=== PATIENT | female | born 1985 | race Caucasian/White ===

== ENCOUNTER 2017-02-03 21:46 | Emergency (ER) | payer SELFPAY ==
[2017-02-03 22:00] VITALS: BP 112/57; PULSE 74; TEMP 98.6; BMI 24.7
== END 2017-02-04 00:52 | disposition left against medical advice (07) ==
LOC: JER 21:46
DX: Z53.21 Procedure and treatment not carried out due to patient leaving prior to being seen by health care provider (principal)
CPT/HCPCS: 99281-25

== ENCOUNTER 2017-02-08 22:47 | Emergency (ER) | payer SELFPAY ==
--- NOTE | 2017-02-08 22:50 | PDOC ---
History of Present Illness - General Chief Complaint: Nausea/Vomiting Stated Complaint: DIZZINESS/NAUSEA/VOMITING Time Seen by Provider: 02/08/17 22:49 History Source: Patient Exam Limitations: No Limitations - History of Present Illness Initial Comments: 02/08/17 23:12 This is a 31-year-old female comes in complaining of nausea vomiting and dizziness. Patient said she has been unable to tolerate any solids or liquids 1 week. Patient said that whenever she eats or drinks something that it is vomited back up. Patient is complaining of some mild lower abdominal pain otherwise denies any chest pain, fevers, chills back pain or diarrhea. PAST MEDICAL HISTORY: no significant history PAST SURGICAL HISTORY: no significant history FAMILY HISTORY: no pertinant history SOCIAL HISTORY: Pt lives with family and is employed. MEDICATIONS: reviewed ALLERGIES: As per nursing notes Review of Systems General: No fevers or chills, no weakness, no weight loss HEENT: No change in vision. No sore throat,. No ear pain CardioVascular: No chest pain or shortness of breath Respiratory:No cough, or wheezing. Gastrointestinal: Positive nausea, positive vomitting, no diarrhea or constipation, No rectal bleeding Genitourinary: No dysuria, hematuria, or frequency Musculoskeletal: No joint or muscle pain or swelling Neurologic: No headache, vertigo, dizziness or loss of consciousness Psychiatric: nor depression Skin: No rashes or easy bruising Endocrine: no increased thirst or abnormal weight change Allergic: no skin or latex allergy All other systems reviewed and normal Exam: General: Well-nourished well-developed individual, no acute distress HEENT: Throat: Normal, tonsils normal, no erythema or exudate, mucous membranes are moist and there is no evidence clinically of dehydration Neck: Supple, no meningeal signs, no lymphadenopathy Eyes::Pupils equal reactive and round, extraocular motion intact Chest: Nontender to palpation Cardiac: S1-S2 normal, regular rate and rhythm, no murmurs rubs or gallops Respiratory: Lungs clear to auscultation bilateral Abdomen: Soft, nondistended, normal bowel sounds, nontender to palpation diffusely Extremities: Warm, dry, no cyanosis, clubbing, or edema Skin: No rashes Neuro: Alert and oriented x3, nonfocal exam, grossly intact, normal gait Psych: Normal mood and affect 02/09/17 00:46 Referring Physician: China Cruz Patient Name: Gerri Rod This is a preliminary report by imaging manager international Exam: Noncontrast CT abdomen and pelvis Images: [id number] Clinical indication: Left flank pain. Rule out stone. Findings: The lung bases are clear. The upper abdominal viscera have a normal unenhanced appearance. A Millie's lobe of liver is noted. The adrenal glands are unremarkable. A left renal cyst is noted. The kidneys are otherwise normal unenhanced appearance. No calculi are seen. There is no hydronephrosis or hydroureter. The gastrointestinal tract does not appear obstructed. No thickened or dilated bowel is seen. The appendix has a normal appearance. There is no mesenteric infiltration. There is no free fluid. The uterus is retroverted. No adnexal masses are seen. The urinary bladder is unremarkable. No abdominal or pelvic adenopathy is seen. No lytic or blastic destructive osseous lesions are seen. Impression: No inflammatory process identified in the abdomen or pelvis. No abdominal mass, adenopathy or collection seen. No urinary tract calculi or evidence of urinary tract instructions seen. Left renal cyst noted. THIS DOCUMENT HAS BEEN ELECTRONICALLY SIGNED Jcarlos Simons M.D. 02/09/2017 00:42 NGOZI Alvarado Please call Imaging Wheel [facility] Axle Inspector [phone] ([phone]) with questions. End of Report Content Assessment and plan: This is a 31-year-old female comes in complaining of nausea and vomiting times one week patient said that she is unable to keep anything in. However patient did not appear dehydrated or does not show any dehydration and her blood work is all normal. Patient did have a small amount of blood in her urine is a CAT scan was done to rule out renal stones and CAT scan was negative for any acute intra-abdominal pathology. Patient was able to tolerate by mouth's in the emergency room patient was comfortable text on her phone and chatting with her friends. Patient discharged home will follow-up with her primary care doctor. Past History - Past Medical History Allergies/Adverse Reactions: Allergies Allergy/AdvReac Type Severity Reaction Status Date / Time No Known Drug Allergies Allergy Verified 02/03/17 21:58 Home Medications: Ambulatory Orders Ondansetron [Zofran *Odt*] 8 mg SL TID PRN #10 od.tablet 02/08/17 Asthma: Yes - Surgical History Abdominal Surgery: Yes - Psycho/Social/Smoking Cessation Hx Anxiety: No Suicidal Ideation: No Smoking Status: No Smoking History: Never smoked Have you smoked in the past 12 months: No Number of Cigarettes Smoked Daily: 0 Hx Alcohol Use: Yes (SOCIAL) Drug/Substance Use Hx: No Substance Use Type: Alcohol ED Treatment Course - LABORATORY CBC & Chemistry Diagram: 02/08/17 23:00 02/08/17 23:00 *DC/Admit/Observation/Transfer Diagnosis at time of Disposition: Nausea & vomiting Qualifiers: Vomiting type: unspecified Vomiting Intractability: non-intractable Qualified Code(s): R11.2 - Nausea with vomiting, unspecified - Discharge Dispostion Disposition: HOME Condition at time of disposition: Stable Admit: No - Prescriptions Prescriptions: Ondansetron [Zofran *Odt*] 8 mg SL TID PRN #10 od.tablet PRN Reason: Nausea - Patient Instructions Printed Discharge Instructions: DI for Nausea -- Adult Additional Instructions: For the nausea take Zofran 1 tablet as often as every 6-8 hours. Return to the emergency department immediately with ANY new, persistent or worsening symptoms. Continue any medications as previously prescribed by your physician. You should follow up with your primary doctor as soon as possible regarding today's emergency department visit. . Please make sure your doctor reviews the results of your emergency evaluation. Thank you for coming to the Emergency Department today for your care. It was a pleasure to see you today. Please note that your evaluation is INCOMPLETE until you follow-up with your doctor.
[2017-02-08 22:51] VITALS: BP 106/76; PULSE 77; TEMP 98; BMI 25.2
[2017-02-08] MEDS ORDERED: ONDANSETRON 4 MG/2 ML VIAL IVPB ONE (22:57)
[2017-02-08] MEDS ORDERED: ONDANSETRON 4 MG/2 ML VIAL ONE (23:03)
[2017-02-08] MEDS ORDERED: SODIUM CHLORIDE 1,000 ML IV ONE (23:05)
[2017-02-08 23:17] LABS: PH,URINE 5.5 (4.5-8); URINE APPEARANCE Clear; URINE BILIRUBIN 1+ (NEGATIVE); URINE GLUCOSE (UA) Negative (NEGATIVE); URINE KETONE 2+ (NEGATIVE); URINE LEUK ESTERASE Trace (NEGATIVE); URINE NITRITE Negative (NEGATIVE); URINE UROBILINOGEN 1.0 E.U/dl (0.2-1.0)
[2017-02-08 23:18] LABS: BASOPHIL 0.6 % (0-2.0); EOSINOPHIL 0.7 % (0-4.5); MCH 27.7 pg (25.7-33.7); MCHC 33.7 g/dl (32.0-36.0); MEAN CELL VOLUME 82.2 fl (80-96); MEAN PLT VOLUME 9.6 fl (7.5-11.1); NEUTROPHILS 72.5 % (42.8-82.8); PLATELET COUNT 303 K/MM3 (134-434); RDW 11.9 % (11.6-15.6); URINE BLOOD 2+ (NEGATIVE); URINE COLOR YELLOW; URINE PROTEIN 1+ (NEGATIVE)
[2017-02-08 23:39] LABS: ALBUMIN 4.5 g/dl (3.5-5.0); ALK PHOS 48 U/L (32-92); ANION GAP 10 (8-16); BILIRUBIN,TOTAL 0.5 mg/dl (0.2-1.0); CALCIUM 9.5 mg/dl (8.4-10.2); CO2 26 mmol/L (22-28); COCKROFT - GAULT 116.1185; CREATININE 0.7 mg/dl (0.6-1.3); GLUCOSE,RANDOM 98 mg/dl (74-106); SGOT/AST 14 U/L (10-42); SGPT/ALT 10 U/L (10-40); TOT PROT 7.4 g/dl (6.4-8.3)
[2017-02-08 23:42] LABS: URINE MUCUS 2+
== END 2017-02-09 00:49 | disposition home or self-care (01) ==
LOC: FER 22:47
PROC: 3E033GC Introduction of Other Therapeutic Substance into Peripheral Vein, Percutaneous Approach (ICD-10-PCS; principal; 2017-02-08)
PROC: 3E0337Z Introduction of Electrolytic and Water Balance Substance into Peripheral Vein, Percutaneous Approach (ICD-10-PCS; 2017-02-08)
DX: R11.2 Nausea with vomiting, unspecified (principal)
CPT/HCPCS: 36415; 74176-TC; 80053; 81003; 81015; 83690; 84703; 85025; 99282-25

== ENCOUNTER 2017-04-22 11:35 | Emergency (ER) | payer OTHER ==
--- NOTE | 2017-04-22 11:39 | PDOC ---
History of Present Illness - General Chief Complaint: Headache Stated Complaint: HEADACHE Time Seen by Provider: 04/22/17 11:39 History Source: Patient Exam Limitations: No Limitations - History of Present Illness Initial Comments: 04/22/17 11:49 31y F hx of athma, migraine headaches presents with headache. Pt states he has been having a headache for the past 2 weeks, headache started off as mild and intermittent, improved with sleep and excedrin and motrin, however hte past 2-3 days headache has become much more severe and is stabbing in nature, on the left side of frontal aspect and behind L eye. Pt endorses some blurry vision when stabbing comes and endroses photophobia and phonophobia. Pt endorses nausea and vomiting with headache as well. pt denes any fever/chills, recent head injury, numbness/tingling/weakness, neck pain, back pain, cp, sob, abd pain. LMP 2-3 weeks ago pt notes she has headaches fairly commonly, but typically resolves with motrin. the headache is similar to the past in nature, but is more severe and persistent relative to previous headaches. [facility] pt endorses sleeping much less the past 2-3 days due to the headache Past History - Past Medical History Allergies/Adverse Reactions: Allergies Allergy/AdvReac Type Severity Reaction Status Date / Time No Known Drug Allergies Allergy Verified 04/22/17 11:38 Home Medications: Ambulatory Orders Aspirin/Acetaminophen/Caffeine [Excedrin Migraine Caplet] 1 each PO ASDIR Asthma: Yes - Surgical History Abdominal Surgery: Yes - Psycho/Social/Smoking Cessation Hx Anxiety: No Suicidal Ideation: No Smoking Status: No Smoking History: Never smoked Have you smoked in the past 12 months: No Number of Cigarettes Smoked Daily: 0 Hx Alcohol Use: Yes (SOCIAL) Drug/Substance Use Hx: No Substance Use Type: Alcohol Review of Systems - Review of Systems Able to Perform ROS?: Yes Comments:: 04/22/17 11:52 Constitutional - no reported Fever, Chills, HEENT: no reported vision changes, sore throat Respiratory: no reported cough, sob, hemoptysis Cardiac: no reported chest pain, palpitations, light headedness, leg swelling Abd/GI: no reported abd pain, nausea, vomiting, blood per rectum, melena, diarrhea : no reported dysuria, frequency, discharge Musculskelatal - no reported back pain, joint swelling skin - no reported bruising, erythema, rash neurological: +headache, photophobia, phonophobia, intermittent blurry vision no reported numbness, focal weakness, tingling, ataxia, hematologic: no reported anemia, easy bruising, easy bleeding *Physical Exam - Physical Exam Comments: 04/22/17 11:54 GENERAL: The patient is awake, alert, and fully oriented, Nontoxic - in no acute distress. HEAD: Normocephalic, atraumatic. EYES: extraocular movements intact, sclera anicteric, conjunctiva clear, visual nolasco intact by confrontation, pupils 4mm and reactive symemtrically ENT: Normal voice, Moist mucous membranes. NECK: Normal range of motion, supple LUNGS: Breath sounds equal, clear to auscultation bilaterally. No wheezes, no rhonchi, no rales. HEART: Regular rate and rhythm, normal S1 and S2 without murmur, rub or gallop. ABDOMEN: Soft, nontender, normoactive bowel sounds. No guarding, no rebound. No CVA tenderness EXTREMITIES: Normal range of motion, no edema. No clubbing or cyanosis. No cords, erythema, or tenderness. NEUROLOGICAL: No facial assymetry, Normal speech, normal finger to nose, strength intact and symmetrically grossly and sensation intact grossly PSYCH: Normal mood, normal affect. SKIN: Warm, Dry, normal turgor, ED Treatment Course - LABORATORY CBC & Chemistry Diagram: 04/22/17 12:00 04/22/17 12:00 Medical Decision Making - Medical Decision Making 04/22/17 11:52 31y F h xof migraine headaches presenting with stabbing/pounding headache to the left frontal scalp behind L eye associated with n/v, photophobia, phonophobia. pts exam noted as documented abov e. vitals normal. vision exam normal suspect migraine headache based on spmtoms will give reglan/fluids/magnesium suspect lack of sleep recently has worsened her headache will reasssess 04/22/17 13:37 pt feeing significantly improved with resolution of her sypmtoms will dc the pt with instructions for rest at home if pt continues to have frequent headaches myrna have pt fu with neurologist for further evaluation I discussed the physical exam findings, ancillary test results and final diagnoses with the patient. I answered all of the patient's questions. The patient was satisfied with the care received and felt comfortable with the discharge plan and treatment plan. The patient will call their primary care physician within 24 hours to arrange follow-up and will return to the Emergency Department with any new, persistent or worsening symptoms. *DC/Admit/Observation/Transfer Diagnosis at time of Disposition: Migraine with aura Qualifiers: Status migrainosus presence: without status migrainosus Intractability: not intractable Qualified Code(s): G43.109 - Migraine with aura, not intractable, without status migrainosus - Discharge Dispostion Disposition: HOME Condition at time of disposition: Improved Admit: No - Referrals Referrals: Tonja Reeves MD [Staff Physician] - Jcarlos Rodriguez MD [Staff Physician] - - Patient Instructions Printed Discharge Instructions: DI for Migraine, Migraine -- Adult Additional Instructions: Return to the emergency department immediately with ANY new, persistent or worsening symptoms including worsening headache, vision changes, numbness/ tingling/weakness, persistent nausea and vomiting or any other concerns. Make sure you are getting adaqute sleep and hydration. Avoid caffeine You MUST call and follow up with your doctor in 2-3 days for further evaluation of your symptoms. Follow up with a neurolgist for evaluation of your frequent headaches. Your emergency department visit is not complete without a followup with your doctor for reevaluation. Results were discussed with you. Please make sure your doctor reviews the results of your emergency evaluation. Print Language: MARTINIQUAIS
[2017-04-22 11:44] VITALS: BP 108/66; PULSE 77; TEMP 99.1; BMI 23.2
[2017-04-22] MEDS ORDERED: SODIUM CHLORIDE 1,000 ML IV ONE (11:48)
[2017-04-22] MEDS ORDERED: MAGNESIUM SULF 50% (8.12 MEQ/2 ML-1 GM VIAL) IVPB ONE (11:48)
[2017-04-22] MEDS ORDERED: METOCLOPRAMIDE HCL INJECTION 10 MG/2 ML VIAL IVPUSH ONE (11:48)
[2017-04-22 12:06] LABS: BASOPHIL 1.4 % (0-2.0); EOSINOPHIL 1.2 % (0-4.5); MCHC 33.5 g/dl (32.0-36.0); MEAN CELL VOLUME 83.5 fl (80-96); MEAN PLT VOLUME 9.2 fl (7.5-11.1); NEUTROPHILS 70.8 % (42.8-82.8); PLATELET COUNT 257 K/MM3 (134-434); WHITE BLOOD COUNT 6.4 K/mm3 (4.0-10.8)
[2017-04-22 12:25] LABS: ALBUMIN 4.6 g/dl (3.5-5.0); ALK PHOS 45 U/L (32-92); ANION GAP 6 (8-16); BILIRUBIN,TOTAL 1.2 mg/dl (0.2-1.0); CALCIUM 9.4 mg/dl (8.4-10.2); CO2 26 mmol/L (22-28); CREATININE 0.6 mg/dl (0.6-1.3); GLUCOSE,RANDOM 106 mg/dl (74-106); SGOT/AST 14 U/L (10-42); SGPT/ALT 14 U/L (10-40); TOT PROT 6.8 g/dl (6.4-8.3)
[2017-04-22] MEDS ORDERED: KETOROLAC TROMETHAMINE 30 MG/1 ML VIAL IVPUSH ONE (12:55)
[2017-04-22] MEDS ORDERED: KETOROLAC TROMETHAMINE 30 MG/1 ML VIAL ONE (13:04)
== END 2017-04-22 14:10 | disposition home or self-care (01) ==
LOC: FER 11:35
PROC: 3E0333Z Introduction of Anti-inflammatory into Peripheral Vein, Percutaneous Approach (ICD-10-PCS; principal; 2017-04-22)
PROC: 3E033GC Introduction of Other Therapeutic Substance into Peripheral Vein, Percutaneous Approach (ICD-10-PCS; 2017-04-22)
PROC: 3E0337Z Introduction of Electrolytic and Water Balance Substance into Peripheral Vein, Percutaneous Approach (ICD-10-PCS; 2017-04-22)
DX: G43.109 Migraine with aura, not intractable, without status migrainosus (principal); J45.909 Unspecified asthma, uncomplicated
CPT/HCPCS: 36415; 80053; 84703; 85025; 96361; 96374; 96375; 99284-25

== ENCOUNTER 2017-06-14 16:09 | Emergency (ER) | payer OTHER ==
[2017-06-14 16:30] VITALS: BMI 22.3
[2017-06-14] MEDS ORDERED: ACETAMINOPHEN 1000 MG/100 ML VIAL (NON FORMULARY) IVPB ONE (16:45)
[2017-06-14] MEDS ORDERED: ONDANSETRON 4 MG/2 ML VIAL IVPB ONE (16:45)
[2017-06-14] MEDS ORDERED: SODIUM CHLORIDE 1,000 ML IV STA (16:45)
[2017-06-14] MEDS ORDERED: ACETAMINOPHEN INJECTION 100 ML IVPB ONE (16:53)
[2017-06-14] MEDS ORDERED: ONDANSETRON 4 MG/2 ML VIAL ONE (16:53)
--- NOTE | 2017-06-14 17:06 | PDOC ---
History of Present Illness - History of Present Illness Initial Comments: 06/14/17 17:14 The patient is a 31 year old female, febrile, with a significant past medical history of sickle cell trait, who presents to the emergency department with generalized weakness, dizziness, cough, nausea, and vomiting for 4 days. The patient reports having a fever (Tmax 102F today) for 3 days. She states she has not be able to keep anything down, not even water since the onset of her symptoms. She states that after she eats or drinks, she coughs, and reports emesis about 30 minutes following her cough. She reports the cough is dry. She reports her emesis as nonbloody. She also reports mild pain to her mid to lower back, bilaterally, as well as her upper abdominal quadrants bilaterally. She states her abdomen hurts from vomiting. She denies chest pain, shortness of breath, headache. She denies chills, diarrhea and constipation. She denies dysuria, frequency, urgency and hematuria. Allergies: NKDA Past surgical history: none reported Family History: Pneumonia (mother) Social history: Pt denies alcohol consumption or tobacco use PCP - Dr. Wills <Ce Lynch - Last Filed: 06/14/17 17:14> - General History Source: Patient Exam Limitations: No Limitations <Otis Cabrera - Last Filed: 06/14/17 18:41> - General Chief Complaint: Weakness Stated Complaint: HEAD ACHE,VOMITING,DIZZINESS,GENERALIZED WEAKNESS Time Seen by Provider: 06/14/17 16:19 Past History <Ce Lynch - Last Filed: 06/14/17 17:14> - Past Medical History Anemia: Yes (SICKLE CELL TRAIT) Asthma: Yes - Surgical History Abdominal Surgery: Yes - Suicide/Smoking/Psychosocial Hx Smoking Status: No Smoking History: Never smoked Have you smoked in the past 12 months: No Number of Cigarettes Smoked Daily: 0 Hx Alcohol Use: No Drug/Substance Use Hx: No Substance Use Type: Alcohol <Otis Cabrera - Last Filed: 06/14/17 18:41> - Past Medical History Allergies/Adverse Reactions: Allergies Allergy/AdvReac Type Severity Reaction Status Date / Time No Known Drug Allergies Allergy Verified 06/14/17 16:11 Home Medications: Ambulatory Orders Aspirin/Acetaminophen/Caffeine [Excedrin Migraine Caplet] 1 each PO ASDIR Diphenhydramine HCl [Benadryl -] 25 mg PO Q8H PRN #21 capsule 06/14/17 Naproxen [Naprosyn -] 500 mg PO BID PRN #14 tablet 06/14/17 Ondansetron HCl [Zofran] 4 mg PO Q8H PRN #12 tablet 06/14/17 Prednisone [Deltasone -] 40 mg PO DAILY #8 tablet 06/14/17 Sulfamethoxazole/Trimethoprim [Bactrim Ds -] 1 tab PO BID #28 tablet 06/14/17 Review of Systems - Review of Systems Able to Perform ROS?: Yes Comments:: 06/14/17 17:14 GENERAL/CONSTITUTIONAL: (+) generalized weakness, fever. No chills. HEAD, EYES, EARS, NOSE AND THROAT: No change in vision. No ear pain or discharge. No sore throat. CARDIOVASCULAR: No chest pain or shortness of breath. RESPIRATORY: (+) cough, No wheezing, or hemoptysis. GASTROINTESTINAL: (+) nausea, vomiting, No diarrhea or constipation. GENITOURINARY: No dysuria, frequency, or change in urination. MUSCULOSKELETAL: (+) bilateral mid to lower back pain. No joint or muscle swelling or pain. No neck pain. SKIN: No rash NEUROLOGIC: No headache, vertigo, loss of consciousness, or change in strength/ sensation. ENDOCRINE: No increased thirst. No abnormal weight change. HEMATOLOGIC/LYMPHATIC: No anemia, easy bleeding, or history of blood clots. ALLERGIC/IMMUNOLOGIC: No hives or skin allergy. <Ce Lynch - Last Filed: 06/14/17 17:14> *Physical Exam - Vital Signs Last Vital Signs Temp Pulse Resp BP Pulse Ox 102.7 F H 109 H 18 115/73 95 06/14/17 16:10 06/14/17 16:10 06/14/17 16:10 06/14/17 17:00 06/14/17 16:10 - Physical Exam Comments: 06/14/17 17:15 GENERAL: (+) febrile, Awake, alert, and fully oriented, in no acute distress HEAD: No signs of trauma EYES: PERRLA, EOMI, sclera anicteric, conjunctiva clear ENT: Auricles normal inspection, hearing grossly normal, nares patent, oropharynx clear without exudates. Moist mucosa NECK: Normal ROM, supple, no lymphadenopathy, JVD, or masses LUNGS: Breath sounds equal, clear to auscultation bilaterally. No wheezes, and no crackles HEART: Regular rate and rhythm, normal S1 and S2, no murmurs, rubs or gallops ABDOMEN: Soft, nontender, normoactive bowel sounds. No guarding, no rebound. No masses MUSCULOSKELETAL: (+) bilateral CVA tenderness. EXTREMITIES: Normal range of motion, no edema. No clubbing or cyanosis. No cords, erythema, or tenderness NEUROLOGICAL: Cranial nerves II-XII intact. Normal speech, normal gait. Sensation intact in upper and lower extremities. 5/5 motor strength in upper and lower extremities. No pronator drift. Finger to nose intact. Rapid alternations intact. SKIN: Warm, Dry, normal turgor, no rashes or lesions noted. <Ce Lynch - Last Filed: 06/14/17 17:14> - Vital Signs Last Vital Signs Temp Pulse Resp BP Pulse Ox 102.7 F H 109 H 18 115/73 95 06/14/17 16:10 06/14/17 16:10 06/14/17 16:10 06/14/17 16:10 06/14/17 16:10 <Otis Cabrera - Last Filed: 06/14/17 18:41> ED Treatment Course - LABORATORY CBC & Chemistry Diagram: 06/14/17 16:35 06/14/17 16:35 - Medications Given in the ED: ED Medications Discontinued Medications Generic Name Dose Route Start Last Admin Trade Name Jeannette PRN Reason Stop Dose Admin Acetaminophen 1,000 mg 06/14/17 16:45 06/14/17 17:00 Ofirmev Injection - IVPB 06/14/17 16:46 1,000 mg ONCE ONE Administration Ondansetron HCl 4 mg 06/14/17 16:45 06/14/17 17:00 Zofran Injection IVPB 06/14/17 16:46 4 mg ONCE ONE Administration <Ce Lynch - Last Filed: 06/14/17 17:14> - LABORATORY CBC & Chemistry Diagram: 06/14/17 16:35 06/14/17 16:35 <Otis Cabrera - Last Filed: 06/14/17 18:41> Medical Decision Making - Medical Decision Making 06/14/17 16:58 A portion of this note was documented by scribe services under my direction. I have reviewed the details of the note, within reason, and agree with the documentation with the following case summary and management plan written by me. Patient treated in the ED. Nursing notes are reviewed and incorporated into the medical decision-making. Vital signs reviewed. Peripheral IV access obtained by the nurse, laboratory studies are drawn and sent, reviewed and interpreted by myself. Vital Signs Temp Pulse Resp BP Pulse Ox 102.7 F H 109 H 18 115/73 95 06/14/17 16:10 06/14/17 16:10 06/14/17 16:10 06/14/17 16:10 06/14/17 16:10 31 year old female with past medical history of asthma presents with generalized weakness, tactile fevers, and bilateral flank pain x 3 days. Denies sick contacts or recent travels. The patient is complaining of bilateral flank pain and suprapubic discomfort. Denies dysuria or urinary frequency. States when she tries to drink fluids, she vomits. Denies diarrhea. Pyelonephritis, UTI, pneumonia within the differential. Pt did complain prior of upper abd pain and vomiting, but no abd tenderness now. Will consider RUQ ultrasound and possibly CT abdomen and pelvis if workup demonstrates no acute findings. 06/14/17 18:06 CBC, BMP 06/14/17 16:35 06/14/17 16:35 CMP Sodium 130 mmol/L (136-145) L 06/14/17 16:35 Potassium 3.5 mmol/L (3.5-5.1) 06/14/17 16:35 Chloride 95 mmol/L (98-107) L D 06/14/17 16:35 Carbon Dioxide 24 mmol/L (22-28) 06/14/17 16:35 Anion Gap 11 (8-16) 06/14/17 16:35 BUN 11 mg/dl (7-18) D 06/14/17 16:35 Creatinine 0.9 mg/dl (0.6-1.3) D 06/14/17 16:35 Creat Clearance w eGFR > 60 (>60) 06/14/17 16:35 Random Glucose 104 mg/dl (74-106) 06/14/17 16:35 Calcium 8.7 mg/dl (8.4-10.2) 06/14/17 16:35 Total Bilirubin 1.2 mg/dl (0.2-1.0) H 06/14/17 16:35 AST 18 U/L (10-42) D 06/14/17 16:35 ALT 18 U/L (10-40) D 06/14/17 16:35 Alkaline Phosphatase 61 U/L (32-92) D 06/14/17 16:35 Total Protein 7.2 g/dl (6.4-8.3) 06/14/17 16:35 Albumin 3.9 g/dl (3.5-5.0) 06/14/17 16:35 Lipase 23 U/L (22-51) 06/14/17 16:35 Urine Test Results Urine Color Yellow 06/14/17 17:23 Urine Appearance Slightly 06/14/17 17:23 Urine pH 6.0 (4.5-8) 06/14/17 17:23 Ur Specific [place] 1.010 (1.005-1.025) 06/14/17 17:23 Urine Protein 2+ (NEGATIVE) H 06/14/17 17:23 Urine Glucose (UA) Negative (NEGATIVE) 06/14/17 17:23 Urine Ketones Trace (NEGATIVE) 06/14/17 17:23 Urine Blood 2+ (NEGATIVE) H 06/14/17 17:23 Urine Nitrite Positive (NEGATIVE) 06/14/17 17:23 Urine Bilirubin Negative (NEGATIVE) 06/14/17 17:23 Urine RBC 5-10 /hpf (0-3) 06/14/17 17:23 Urine WBC >100 (3-5) 06/14/17 17:23 Ur Epithelial Cells 0-3 /HPF 06/14/17 17:23 Urine Bacteria Moderate /hpf (NEGATIVE) 06/14/17 17:23 Chest xray reviewed by me, pending official radiology read. No infiltrates. This is pyelonephritis. Levaquin PO x 5 days. Follow up with primary care physician. NSAIDS and/or tylenol. Plenty of oral fluids. Return precautions given including inability to tolerate meds, persistent vomiting. I discussed the physical exam findings, ancillary test results and final diagnoses with the patient. I answered all of the patient's questions. The patient was satisfied with the care received and felt comfortable with the discharge plan and treatment plan. The patient will call their primary care physician within 24 hours to arrange follow-up and will return to the Emergency Department with any new, persistant or worsening symptoms. 06/14/17 18:37 Prior to discharge, pt had developed a hive by the left lip. Levaquin stopped. Oral prednisone and benadryl ordered. Pt instructed not to take levaquin. Will switch antibiotic to bactrim for 2 weeks. Will discharge with prenidsone <Otis Cabrera - Last Filed: 06/14/17 18:41> *DC/Admit/Observation/Transfer - Attestations Scribe Attestion: 06/14/17 17:16 Documentation prepared by Ce Lynch, acting as emergency medicine medical director for Otis Cabrera MD, <Ce Lynch - Last Filed: 06/14/17 17:14> - Discharge Dispostion Admit: No <Otis Cabrera - Last Filed: 06/14/17 18:41> Diagnosis at time of Disposition: Pyelonephritis - Discharge Dispostion Disposition: HOME Condition at time of disposition: Improved - Prescriptions Prescriptions: Sulfamethoxazole/Trimethoprim [Bactrim Ds -] 1 tab PO BID #28 tablet Diphenhydramine HCl [Benadryl -] 25 mg PO Q8H PRN #21 capsule PRN Reason: Allergies Prednisone [Deltasone -] 40 mg PO DAILY #8 tablet Naproxen [Naprosyn -] 500 mg PO BID PRN #14 tablet PRN Reason: Pain Ondansetron HCl [Zofran] 4 mg PO Q8H PRN #12 tablet PRN Reason: Nausea - Referrals Referrals: Kimberly Wills MD [Primary Care Provider] - - Patient Instructions Printed Discharge Instructions: DI for Kidney Infection Additional Instructions: Please take the levaquin daily until you complete the antibiotics. For nausea, take 4 mg zofran every 8 hours as needed for nausea. Take 500 mg naproxen every 12 hours as needed for pain. Follow up with your primary care physician.
[2017-06-14 17:20] LABS: MCH 27.9 pg (25.7-33.7); MCHC 33.4 g/dl (32.0-36.0); MEAN CELL VOLUME 83.6 fl (80-96); MEAN PLT VOLUME 10.1 fl (7.5-11.1); NEUTROPHILS 83.6 % (42.8-82.8); PLATELET COUNT 260 K/MM3 (134-434); RDW 12.3 % (11.6-15.6); WHITE BLOOD COUNT 10.8 K/mm3 (4.0-10.8)
[2017-06-14 17:27] LABS: URINE APPEARANCE Slightly; URINE BILIRUBIN Negative (NEGATIVE); URINE GLUCOSE (UA) Negative (NEGATIVE); URINE KETONE Trace (NEGATIVE); URINE NITRITE Positive (NEGATIVE); URINE UROBILINOGEN >=8.0 E.U./dl (0.2-1.0)
[2017-06-14 17:32] LABS: URINE BLOOD 2+ (NEGATIVE); URINE COLOR YELLOW; URINE LEUK ESTERASE 2+ (NEGATIVE); URINE PROTEIN 2+ (NEGATIVE)
[2017-06-14 17:42] LABS: ALBUMIN 3.9 g/dl (3.5-5.0); ALK PHOS 61 U/L (32-92); ANION GAP 11 (8-16); BILIRUBIN,TOTAL 1.2 mg/dl (0.2-1.0); CALCIUM 8.7 mg/dl (8.4-10.2); CO2 24 mmol/L (22-28); CREATININE 0.9 mg/dl (0.6-1.3); GLUCOSE,RANDOM 104 mg/dl (74-106); SGOT/AST 18 U/L (10-42); SGPT/ALT 18 U/L (10-40); TOT PROT 7.2 g/dl (6.4-8.3)
[2017-06-14] MEDS ORDERED: KETOROLAC TROMETHAMINE 30 MG/1 ML VIAL IVPUSH ONE (17:46)
[2017-06-14] MEDS ORDERED: LEVOFLOXACIN 750 MG IVPB 150 ML IVPB ONE ×2 (17:46→17:50)
[2017-06-14] MEDS ORDERED: KETOROLAC TROMETHAMINE 30 MG/1 ML VIAL ONE (17:50)
[2017-06-14 18:04] LABS: URINE BACTERIA MODERATE /hpf (NEGATIVE); URINE WBC >100 (3-5)
[2017-06-14 18:22] VITALS: BP 85/52; PULSE 88; TEMP 99.6
[2017-06-14] MEDS ORDERED: predniSONE 20 MG TABLET (UD) ONE (18:36)
[2017-06-14] MEDS ORDERED: predniSONE 20 MG TABLET (UD) PO ONE (18:41)
== END 2017-06-14 20:29 | disposition home or self-care (01) ==
LOC: FER 16:09
PROC: 3E03329 Introduction of Other Anti-infective into Peripheral Vein, Percutaneous Approach (ICD-10-PCS; principal; 2017-06-14)
PROC: 3E033GC Introduction of Other Therapeutic Substance into Peripheral Vein, Percutaneous Approach (ICD-10-PCS; 2017-06-14)
PROC: 3E0333Z Introduction of Anti-inflammatory into Peripheral Vein, Percutaneous Approach (ICD-10-PCS; 2017-06-14)
PROC: 3E033NZ Introduction of Analgesics, Hypnotics, Sedatives into Peripheral Vein, Percutaneous Approach (ICD-10-PCS; 2017-06-14)
PROC: 3E0337Z Introduction of Electrolytic and Water Balance Substance into Peripheral Vein, Percutaneous Approach (ICD-10-PCS; 2017-06-14)
DX: N12 Tubulo-interstitial nephritis, not specified as acute or chronic (principal); D57.3 Sickle-cell trait; J45.909 Unspecified asthma, uncomplicated
CPT/HCPCS: 36415; 71020-TC; 80053; 81003; 81015; 83690; 84703; 85025; 87040; 87086; 87186; 99284-25

== ENCOUNTER 2017-09-07 17:33 | Emergency (ER) | payer OTHER ==
[2017-09-07] MEDS ORDERED: diphenhydrAMINE HCL 25 MG CAPSULE (FP) PO ONE (17:54)
[2017-09-07] MEDS ORDERED: predniSONE 20 MG TABLET (UD) PO ONE (17:54)
[2017-09-07] MEDS ORDERED: FAMOTIDINE 20 MG TABLET PO ONE (17:55)
[2017-09-07 17:57] VITALS: PULSE 88; TEMP 97.8; BMI 21.9
[2017-09-07] MEDS ORDERED: diphenhydrAMINE HCL 50 MG CAPSULE ONE (17:58)
[2017-09-07] MEDS ORDERED: predniSONE 20 MG TABLET (UD) ONE (17:58)
[2017-09-07] MEDS ORDERED: FAMOTIDINE 20 MG TABLET ONE (17:58)
--- NOTE | 2017-09-07 18:27 | PDOC ---
History of Present Illness <Sunita Good - Last Filed: 09/07/17 18:21> - History of Present Illness Initial Comments: 09/07/17 18:27 The patient is a year old female, with no significant past medical history, who presents to the emergency department with,The patient is a 32 year old female, with a significant past medical history of sickle cell trait, who presents to the emergency department with diffuse body rash since this morning. The patient reports the rash is pruritic. She reportedly took banophen without relief which she states she had left over from the past. She denies significant relief from using the banophen once today. She denies use of new antibiotics, soaps, lotions , detergents. She reports being told in the past that she is allergic to the cold. She denies chest pain, shortness of breath, headache and dizziness. She denies fever, chills, nausea, vomit, diarrhea and constipation. She denies dysuria, frequency, urgency and hematuria. Family History: eczema (brother) <Ce Lynch - Last Filed: 09/07/17 18:36> - General Chief Complaint: Allergic Reaction Stated Complaint: ALLERGIC REACTION Time Seen by Provider: 09/07/17 17:39 Past History - Past Medical History Anemia: Yes (SICKLE CELL TRAIT) Asthma: Yes COPD: No Disorders: Yes (PYELONEPHRITIS) Other medical history: HEADACHE - Surgical History Abdominal Surgery: Yes - Suicide/Smoking/Psychosocial Hx Smoking Status: No Smoking History: Never smoked Have you smoked in the past 12 months: No Number of Cigarettes Smoked Daily: 0 Hx Alcohol Use: Yes (SOCIAL) Drug/Substance Use Hx: No Substance Use Type: Alcohol <Sunita Good - Last Filed: 09/07/17 18:21> <Ce Lynch - Last Filed: 09/07/17 18:36> - Past Medical History Allergies/Adverse Reactions: Allergies Allergy/AdvReac Type Severity Reaction Status Date / Time levofloxacin [From Levaquin] Allergy Hives Verified 06/14/17 18:44 Home Medications: Ambulatory Orders Diphenhydramine HCl [Benadryl -] 25 mg PO Q8H PRN #21 capsule 06/14/17 Prednisone [Deltasone -] 20 mg PO BID #6 tablet 09/07/17 Review of Systems - Review of Systems Able to Perform ROS?: Yes Comments:: 09/07/17 18:27 GENERAL/CONSTITUTIONAL: No fever or chills. No weakness. HEAD, EYES, EARS, NOSE AND THROAT: No change in vision. No ear pain or discharge. No sore throat. CARDIOVASCULAR: No chest pain or shortness of breath. RESPIRATORY: No cough, wheezing, or hemoptysis. GASTROINTESTINAL: No nausea, vomiting, diarrhea or constipation. GENITOURINARY: No dysuria, frequency, or change in urination. MUSCULOSKELETAL: No joint or muscle swelling or pain. No neck or back pain. SKIN: (+) diffuse pruritic rash NEUROLOGIC: No headache, vertigo, loss of consciousness, or change in strength/ sensation. ENDOCRINE: No increased thirst. No abnormal weight change. HEMATOLOGIC/LYMPHATIC: No anemia, easy bleeding, or history of blood clots. ALLERGIC/IMMUNOLOGIC: No hives or skin allergy. <Ce Lynch - Last Filed: 09/07/17 18:36> *Physical Exam - Vital Signs Last Vital Signs Temp Pulse Resp BP Pulse Ox 97.8 F 88 16 108/56 100 09/07/17 17:34 09/07/17 17:34 09/07/17 17:34 09/07/17 17:34 09/07/17 17:34 <Sunita Good - Last Filed: 09/07/17 18:21> - Vital Signs Last Vital Signs Temp Pulse Resp BP Pulse Ox 97.8 F 88 16 108/56 100 09/07/17 17:34 09/07/17 17:34 09/07/17 17:34 09/07/17 17:34 09/07/17 17:34 - Physical Exam Comments: 09/07/17 18:28 GENERAL: Awake, alert, and fully oriented, in no acute distress HEAD: No signs of trauma EYES: PERRLA, EOMI, sclera anicteric, conjunctiva clear ENT: No limit or tongue swelling. No stridor. Auricles normal inspection, hearing grossly normal, nares patent, oropharynx clear without exudates. Moist mucosa NECK: Normal ROM, supple, no lymphadenopathy, JVD, or masses LUNGS: Breath sounds equal, clear to auscultation bilaterally. No wheezes, and no crackles HEART: Regular rate and rhythm, normal S1 and S2, no murmurs, rubs or gallops ABDOMEN: Soft, nontender, normoactive bowel sounds. No guarding, no rebound. No masses EXTREMITIES: Normal range of motion, no edema. No clubbing or cyanosis. No cords, erythema, or tenderness NEUROLOGICAL: Cranial nerves II through XII grossly intact. Normal speech, normal gait SKIN: (+) dry scaly skin, diffuse urticarial like rash over the trunk and increase in flexion creases of arms bilaterally. Warm, Dry, normal turgor, <Ce Lynch - Last Filed: 09/07/17 18:36> ED Treatment Course - Medications Given in the ED: ED Medications Discontinued Medications Generic Name Dose Route Start Last Admin Trade Name Freq PRN Reason Stop Dose Admin Diphenhydramine HCl 50 mg 09/07/17 17:54 09/07/17 18:00 Benadryl - PO 09/07/17 17:55 50 mg ONCE ONE Administration Famotidine 20 mg 09/07/17 17:55 09/07/17 18:00 Pepcid - PO 09/07/17 17:56 20 mg ONCE ONE Administration Prednisone 60 mg 09/07/17 17:54 09/07/17 18:00 Deltasone - PO 09/07/17 17:55 60 mg ONCE ONE Administration <Sunita Good - Last Filed: 09/07/17 18:21> - Medications Given in the ED: ED Medications Discontinued Medications Generic Name Dose Route Start Last Admin Trade Name Freq PRN Reason Stop Dose Admin Diphenhydramine HCl 50 mg 09/07/17 17:54 09/07/17 18:00 Benadryl - PO 09/07/17 17:55 50 mg ONCE ONE Administration Famotidine 20 mg 09/07/17 17:55 09/07/17 18:00 Pepcid - PO 09/07/17 17:56 20 mg ONCE ONE Administration Prednisone 60 mg 09/07/17 17:54 09/07/17 18:00 Deltasone - PO 09/07/17 17:55 60 mg ONCE ONE Administration <Ce Lynch - Last Filed: 09/07/17 18:36> Medical Decision Making - Medical Decision Making 09/07/17 18:21 32-year-old female history of sickle cell trait here today complaining of diffuse urticarial-like rash which is pruritic. Patient states that started a few days ago concentrate over her trunk and back and the flexure creases of her arms. She has had similar ALLERGIC reaction to an antibiotic in the past. Denies any new lotions creams or no new medications has been told that she is ALLERGIC to cold weather does have a family history of eczema but no known personal history of eczema Physical exam awake alert no acute distress or lip swelling no stridor lung exam is without wheezing no crackles heart is regular no murmurs rubs or gallops skin is urticarial-like rash as red patches posteriorly over the trunk back and chest wall as well as increase in the flexure creases of the arms bilaterally. Differential includes ALLERGIC reaction to environmental triggers, asthma, patient does have very dry skin. Recommend he Saran, Aveeno cream or lotion, recommend Benadryl and prednisone 3 days and follow-up with dermatology patient states that she does have a dock guard she can follow up with <Sunita Good - Last Filed: 09/07/17 18:21> *DC/Admit/Observation/Transfer - Discharge Dispostion Admit: No <Sunita Good - Last Filed: 09/07/17 18:21> - Attestations Scribe Attestion: 09/07/17 18:28 Documentation prepared by Ce Lynch, acting as medical information specialist for Sunita Good MD, <Ce Lynch - Last Filed: 09/07/17 18:36> Diagnosis at time of Disposition: Urticarial rash - Discharge Dispostion Disposition: HOME Condition at time of disposition: Improved - Prescriptions Prescriptions: Prednisone [Deltasone -] 20 mg PO BID #6 tablet - Referrals Referrals: Tonja Reeves MD [Primary Care Provider] - - Patient Instructions Printed Discharge Instructions: DI for General Allergic Reactions, DI for Atopic Dermatitis - Adult Additional Instructions: Can take prednisone 20 mg twice daily 3 days starting tomorrow 1218. He should also take Benadryl 25 mg every 6 hours as needed for itching. He can apply topical hydrocortisone cream to the areas on your arm and posterior area of her neck to help with itching. Available [id number]. He should be using a non- scented soap and lotion such as a aveeno, or purpose. 4 lotion I recommend aveeno eczema, or Eucerin cream, avoid any scented lotions or soaps. He should follow-up with a dock guard call to schedule within the next few weeks in addition follow-up with your primary care doctor within 1 week. Return for any worsening ALLERGIC reaction shortness of breath tong or lip swelling or any concerns - Post Discharge Activity
[2017-09-07 18:55] VITALS: BP 107/58
== END 2017-09-07 19:08 | disposition home or self-care (01) ==
LOC: FER 17:33
DX: L50.9 Urticaria, unspecified (principal); R21 Rash and other nonspecific skin eruption; D57.3 Sickle-cell trait; J45.909 Unspecified asthma, uncomplicated
CPT/HCPCS: 99282-25

== ENCOUNTER 2017-09-08 04:23 | Emergency (ER) | payer OTHER ==
[2017-09-08] MEDS ORDERED: DEXAMETHASONE SOD PHOSPHATE 10 MG/1 ML VIAL IM ONE (04:31)
[2017-09-08] MEDS ORDERED: DEXAMETHASONE SOD PHOSPHATE 10 MG/1 ML VIAL ONE (04:32)
--- NOTE | 2017-09-08 04:37 | PDOC ---
History of Present Illness - General Chief Complaint: Allergic Reaction Stated Complaint: C/O ITCHING FROM ALLERGIC REACTION Time Seen by Provider: 09/08/17 04:30 - History of Present Illness Initial Comments: 09/08/17 04:31 Hx of cold induced urticaria. Presents 2nd visit for hives. Treated with prednisone 20mg, no relief. Took benadryl "Im not allergic to anything" This time was in warm house. No dyspnea pmh: denies fhx: noncontributory ros: reviewed and otherwise negative OE: VS reviewed itching + urticaria non icteric mmm cta rrr abd nt alert + oriented x 3 cooperative a/p Urticarial reaction Steroids Past History - Past Medical History Allergies/Adverse Reactions: Allergies Allergy/AdvReac Type Severity Reaction Status Date / Time levofloxacin [From Levaquin] Allergy Hives Verified 09/08/17 04:25 Home Medications: Ambulatory Orders Diphenhydramine HCl [Benadryl -] 25 mg PO Q8H PRN #21 capsule 06/14/17 Prednisone [Deltasone -] 20 mg PO BID #6 tablet 09/07/17 Anemia: Yes (SICKLE CELL TRAIT) Asthma: Yes COPD: No Disorders: Yes (PYELONEPHRITIS) - Surgical History Abdominal Surgery: Yes - Suicide/Smoking/Psychosocial Hx Smoking Status: No Smoking History: Never smoked Have you smoked in the past 12 months: No Number of Cigarettes Smoked Daily: 0 Information on smoking cessation initiated: No Hx Alcohol Use: No Drug/Substance Use Hx: No Substance Use Type: Alcohol *Physical Exam - Vital Signs Last Vital Signs Temp Pulse Resp BP Pulse Ox 98.5 F 85 18 101/62 99 09/08/17 04:27 09/08/17 04:27 09/08/17 04:27 09/08/17 04:27 09/08/17 04:27 *DC/Admit/Observation/Transfer Diagnosis at time of Disposition: Allergic reaction Qualifiers: Encounter type: subsequent encounter Qualified Code(s): T78.40XD - Allergy, unspecified, subsequent encounter - Discharge Dispostion Disposition: HOME Condition at time of disposition: Stable - Referrals Referrals: Tonja Reeves MD [Primary Care Provider] - Call tomorrow - Patient Instructions - Post Discharge Activity
[2017-09-08 04:41] VITALS: BP 101/62; PULSE 85; TEMP 98.5; BMI 21.9
== END 2017-09-08 04:40 | disposition home or self-care (01) ==
LOC: FER 04:23
PROC: 3E033GC Introduction of Other Therapeutic Substance into Peripheral Vein, Percutaneous Approach (ICD-10-PCS; principal; 2017-09-08)
DX: T78.40XD Allergy, unspecified, subsequent encounter (principal)
CPT/HCPCS: 96372; 99281-25

== ENCOUNTER 2017-09-08 14:34 | Emergency (ER) | payer OTHER ==
[2017-09-08 14:49] VITALS: BP 109/66; PULSE 95; TEMP 97; BMI 21.7
--- NOTE | 2017-09-08 15:15 | PDOC ---
History of Present Illness <Michael Monet - Last Filed: 09/08/17 15:16> - General History Source: Patient Exam Limitations: No Limitations - History of Present Illness Initial Comments: 09/08/17 15:26 The patient is a 32 year old female, with a significant past medical history of sickle cell trait and migraines, who presents to the emergency department with diffuse body rash for approximately 2 days. The patient reports the rash is pruritic in nature. Patient reports this is her 3rd visit to the ED for the same rash in the past 24 hrs. Patient has been taking Benadryl and Prednisone for her rash as prescribed initially with minimal relief of symptoms. Patients states she desires bloodwork at the time to figure out the origin of her rash. Patient states she has not followed up with an Student Outreach Coordinator or Geophysical Operator for her symptoms. She denies any fever, chills, or sore throat. She denies any chest pain, shortness of breath, diaphoresis, or palpitations. She denies any recent travel or sick contacts. No reported new meds, lotions, creams, soaps or other exposures. Allergies: Levofloxacin Past Surgical History: None reported Social History: Non smoker. No ETOH or recreational drug use. <Herminio Guo - Last Filed: 09/08/17 15:26> - General Chief Complaint: Rash Stated Complaint: REVISIT FOR RASH & ITCHING Time Seen by Provider: 09/08/17 14:37 Past History - Past Medical History Anemia: Yes (SICKLE CELL TRAIT) Asthma: Yes COPD: No Disorders: Yes (PYELONEPHRITIS) - Surgical History Abdominal Surgery: Yes - Suicide/Smoking/Psychosocial Hx Smoking Status: No Smoking History: Never smoked Have you smoked in the past 12 months: No Number of Cigarettes Smoked Daily: 0 Hx Alcohol Use: Yes (SOCIAL) Drug/Substance Use Hx: No Substance Use Type: Alcohol <Michael Monet - Last Filed: 09/08/17 15:16> <Herminio Guo - Last Filed: 09/08/17 15:26> - Past Medical History Allergies/Adverse Reactions: Allergies Allergy/AdvReac Type Severity Reaction Status Date / Time levofloxacin [From Levaquin] Allergy Hives Verified 09/08/17 04:25 Home Medications: Ambulatory Orders Diphenhydramine HCl [Benadryl -] 25 mg PO Q8H PRN #21 capsule 06/14/17 Prednisone [Deltasone -] 20 mg PO BID #6 tablet 09/07/17 Review of Systems - Review of Systems Able to Perform ROS?: Yes Comments:: 09/08/17 15:26 CONSTITUTIONAL: No reported: Fever, Chills, HEENT: No reported: Throat Swelling, Difficulty Swallowing, Mouth Swelling, RESPIRATORY: No reported: Shortness of Breath, SOB with Exertion, Wheezing, GI: No abdominal pain, nausea or vomiting SKIN: Present: Diffuse pruritic rash. <Herminio Guo - Last Filed: 09/08/17 15:26> *Physical Exam - Vital Signs Last Vital Signs Temp Pulse Resp BP Pulse Ox 97.0 F L 95 H 15 109/66 98 09/08/17 14:35 09/08/17 14:35 09/08/17 14:35 09/08/17 14:35 09/08/17 14:35 <Michael Monet - Last Filed: 09/08/17 15:16> - Vital Signs Last Vital Signs Temp Pulse Resp BP Pulse Ox 97.0 F L 95 H 15 109/66 98 09/08/17 14:35 09/08/17 14:35 09/08/17 14:35 09/08/17 14:35 09/08/17 14:35 - Physical Exam Comments: 09/08/17 15:26 GENERAL: The patient is awake, alert, and fully oriented, Nontoxic - in no acute distress. ENT: Normal voice, Moist mucous membranes. No signs of angeoedema SKIN: urticarial rash on arms/torso <Herminio Guo - Last Filed: 09/08/17 15:26> Medical Decision Making - Medical Decision Making 09/08/17 15:16 32y F presents with persistent itching and hives she was prescribed prednisone and benadryl for which she has been using, but the hives persiste no signs of angeoedema, sob/wheezing, gi symptms will have pt fu with pmd, inspector firearms and derm if symptoms do not resolve pt would like blood tests to figure out what she is allergic to, but that is not indicated in the ED. I discussed the physical exam findings, ancillary test results and final diagnoses with the patient. I answered all of the patient's questions. The patient was satisfied with the care received and felt comfortable with the discharge plan and treatment plan. The patient will call their primary care physician within 24 hours to arrange follow-up and will return to the Emergency Department with any new, persistent or worsening symptoms. A portion of this note was documented by scribe services under my direction. I have reviewed the details of the note, within reason, and agree with the documentation with the following case summary and management plan written by me <Michael Monet - Last Filed: 09/08/17 15:16> *DC/Admit/Observation/Transfer - Discharge Dispostion Admit: No <Michael Monet - Last Filed: 09/08/17 15:16> - Attestations Scribe Attestion: 09/08/17 15:26 Documentation prepared by Herminio Guo, acting as medical and scientific illustrator for Michael Monet MD. <Herminio Guo - Last Filed: 09/08/17 15:26> Diagnosis at time of Disposition: Urticaria - Discharge Dispostion Disposition: HOME Condition at time of disposition: Stable - Referrals Referrals: Tonja Reeves MD [Primary Care Provider] - Nabila Real MD [Staff Physician] - - Patient Instructions Printed Discharge Instructions: DI for Hives Additional Instructions: Please continue taking the same treatment as previously prescribed. Follow up with an inspector firearms to see what you may be allergic to. YOu may also follow up with a customer success advocate if sypmtoms do not resolve in a few days. FOllow up with a primary care doctor for reevaluation. Print Language: IRISH - Post Discharge Activity
== END 2017-09-08 15:27 | disposition home or self-care (01) ==
LOC: FER 14:34
DX: L50.9 Urticaria, unspecified (principal); N12 Tubulo-interstitial nephritis, not specified as acute or chronic; D57.3 Sickle-cell trait
CPT/HCPCS: 99281-25

== ENCOUNTER 2021-01-15 17:48 | Emergency (ER) | payer OTHER ==
[2021-01-15 18:07] VITALS: BP 148/75; PULSE 64; TEMP 97.8; BMI 29.2
== END 2021-01-15 20:29 | disposition home or self-care (01) ==
LOC: FER 17:48
DX: R10.30 Lower abdominal pain, unspecified (principal)
CPT/HCPCS: 76801-TC; 81003; 99285-25

== ENCOUNTER 2022-06-07 09:00 | Emergency (ER) | payer OTHER ==
[2022-06-07 09:25] VITALS: BP 114/68; PULSE 80; RESP 16; TEMP 98.9; BMI 29.2
== END 2022-06-07 11:27 | disposition home or self-care (01) ==
LOC: FER 09:00
DX: M25.571 Pain in right ankle and joints of right foot (principal); W01.0XXA Fall on same level from slipping, tripping and stumbling without subsequent striking against object, initial encounter
CPT/HCPCS: 73610-TC-RT-FY; 73630-TC-RT-FY; 99283-25

== ENCOUNTER 2024-01-13 21:10 | Emergency (ER) | payer OTHER ==
[2024-01-13 21:36] VITALS: BP 117/74; PULSE 76; RESP 16; TEMP 99; BMI 30.2
[2024-01-13] MEDS ORDERED: predniSONE 20 MG TABLET (UD) ONE (21:37)
[2024-01-13] MEDS ORDERED: diphenhydrAMINE HCL 50 MG CAPSULE ONE (21:37)
[2024-01-13] MEDS: predniSONE 20 MG TABLET (UD) PO ONE (21:41)
[2024-01-13] MEDS: diphenhydrAMINE HCL 50 MG CAPSULE PO ONE (21:41)
== END 2024-01-13 22:52 | disposition home or self-care (01) ==
LOC: FER 21:10
DX: L23.89 Allergic contact dermatitis due to other agents (principal)
CPT/HCPCS: 99283-25

== ENCOUNTER 2024-01-18 11:39 | Emergency (ER) | payer OTHER ==
[2024-01-18 11:44] VITALS: BP 119/79; PULSE 98; RESP 20; TEMP 99.3; BMI 30.2
[2024-01-18] MEDS: methylPREDNISolone NA SUCC 40 MG/1 ML VIAL IVPUSH ONE (11:59)
[2024-01-18] MEDS: FAMOTIDINE 20 MG/50 ML IVPB 20 MG/50 ML MG IVPB ONE (11:59)
[2024-01-18] MEDS ORDERED: methylPREDNISolone NA SUCC 40 MG/1 ML VIAL ONE (12:00)
[2024-01-18] MEDS ORDERED: FAMOTIDINE 20 MG/50 ML IVPB 20 MG/50 ML MG IVPB ONE (12:00)
[2024-01-18] MEDS: SODIUM CHLORIDE 1,000 ML IV STA (12:10)
== END 2024-01-18 12:47 | disposition home or self-care (01) ==
LOC: FER 11:39
PROC: 3E033GC Introduction of Other Therapeutic Substance into Peripheral Vein, Percutaneous Approach (ICD-10-PCS; principal; 2024-01-18)
PROC: 3E033GC Introduction of Other Therapeutic Substance into Peripheral Vein, Percutaneous Approach (ICD-10-PCS; 2024-01-18)
PROC: 3E033GC Introduction of Other Therapeutic Substance into Peripheral Vein, Percutaneous Approach (ICD-10-PCS; 2024-01-18)
PROC: 3E0337Z Introduction of Electrolytic and Water Balance Substance into Peripheral Vein, Percutaneous Approach (ICD-10-PCS; 2024-01-18)
DX: T78.40XA Allergy, unspecified, initial encounter (principal); R21 Rash and other nonspecific skin eruption; R22.0 Localized swelling, mass and lump, head
CPT/HCPCS: 99284-25